=== PATIENT | male | born 1950 | race Caucasian/White ===

== ENCOUNTER 2024-04-07 17:06 | Emergency (ER) | payer MEDICARE, SELFPAY ==
[2024-04-07] VITALS (16 sets, daily range): BP systolic 112–168; BP diastolic 70–102; PULSE 79–127; TEMP 36.9; O2SAT 92–98; BMI 38.2
--- NOTE | 2024-04-07 17:23 | ECG_ITS ---
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
[2024-04-07 17:40] LABS: Basophils Absolute Auto 0.1 10^3/uL (0.0-0.1); Basophils Percent Auto 0.7 % (0.2-2.0); Eosinophils Percent Auto 0.5 % (0.9-7.0); Hematocrit 38.6 % (42.0-54.0); Hemoglobin 13.3 g/dL (14.0-18.0); Immature Granulocytes Abs Auto 0.08 10^3/uL (0.00-0.03); Lymphocytes Absolute Auto 1.1 10^3/uL (1.2-3.8); Lymphocytes Percent Auto 12.8 % (20.5-60.0); Mean Corpuscular HGB Conc 34.5 g/dL (29.9-35.2); Mean Corpuscular Hemoglobin 34.5 pg (25.9-34.0); Mean Corpuscular Volume 100.3 fL (80.0-94.0); Mean Platelet Volume 10.1 fL (9.5-13.5); Monocytes Absolute Auto 1.1 10^3/uL (0.3-0.8); Monocytes Percent Auto 13.4 % (1.7-12.0); Neutrophils Absolute Auto 5.9 10^3/uL (1.4-6.5); Neutrophils Percent Auto 71.6 % (43.0-75.0); Platelet Count 198 10^3/uL (150-450); Red Blood Count 3.85 10^6/uL (4.70-6.10); Red Cell Distribution Width 14.2 % (11.0-15.0); White Blood Count 8.2 10^3/uL (4.0-11.0)
[2024-04-07] MEDS: 0.9 % SODIUM CHLORIDE 1,000 ML 1000 ML IV (17:42)
[2024-04-07 17:52] LABS: Magnesium 1.9 mg/dL (1.8-2.4)
[2024-04-07 18:08] LABS: Alanine Aminotransferase 22 U/L (16-63); Albumin Globulin Ratio 1.2; Albumin Level 3.6 g/dL (3.4-5.0); Alkaline Phosphatase 63 U/L (46-116); Anion Gap 9.3; Aspartate Amino Transferase 13 U/L (15-37); BUN Creatinine Ratio 19.4; Bilirubin Total 1.2 mg/dL (0.2-1.0); Calcium 9.5 mg/dL (8.5-10.1); Carbon Dioxide 27.2 mmol/L (21.0-32.0); Chloride 101 mmol/L (98-107); Estimated GFR (African America >60 (>=60); Estimated GFR (Non-African Ame >60 (>=60); Ethanol <3 mg/dL; Globulin 2.9 g/dL; Glucose 90 mg/dL (74-106); Potassium 3.5 mmol/L (3.5-5.1); Sodium 134 mmol/L (136-145); Total Protein 6.5 g/dL (6.4-8.2)
--- NOTE | 2024-04-07 18:57 | ED.DIZZY1 ---
HPI - Dizziness General Chief Complaint: Syncope Stated Complaint: SYNCOPY @1630/LOW BP Time Seen by Provider: 04/07/24 17:22 Source: patient Mode of arrival: walk-in Limitations: no limitations History of Present Illness HPI Narrative: The patient is coming to the ER after he had an episode during which he was just sitting and all of a sudden passed out for few seconds, according to his friend he was lowered to the floor he was just sitting when this happened, the patient woke up with incontinance of urine. There was no history of any fall or trauma Related Data Allergies Allergy/AdvReac Type Severity Reaction Status Date / Time No Known Drug Allergies Allergy Verified 04/07/24 17:19 Review of Systems ROS Status of ROS 10 or more systems reviewed and unremarkable except as noted in history and below Exam Narrative Exam Narrative: Nurses notes and vital signs reviewed and patient is not hypoxic. General: Well-appearing and in no apparent distress. Skin: Warm, dry, no pallor noted. No rash. Head: Normocephalic, atraumatic. Neck: Supple, non-tender. Eye: Pupils are equal, round and EOMI. No scleral icterus. Ears, Nose, Mouth, and Throat: TM are clear, no nasal mucosal hypertrophy. Oral mucosa is moist, no posterior oropharynx erythema, uvula is mid-line Cardiovascular: Regular Rate and Rhythm without murmur, gallop or rub. Respiratory: No accessory muscle use or respiratory distress. Lungs are clear to auscultation, no wheezing, rales or rhonchi Chest Wall: no tenderness Back: No midline thoracic or lumbar vertebral tenderness. No CVA tenderness Musculoskeletal: normal ROM, no calf or popliteal tenderness, no lower extremity edema/swelling GI: Abdomen is soft, non-distended. Normal bowel sounds. No masses appreciated. No tenderness to palpation. No rebound, guarding, or rigidity noted. Neurological: A&O x4. No cranial nerve dysfunction observed. No truncal ataxia. Moves all extremities. Sensation intact. Psychiatric: Cooperative and interactive. Normal mood and affect. Constitutional Vital Signs, click to edit/add: Last Vital Signs Temp 98.5 F 04/07/24 17:11 Pulse 92 H 04/07/24 18:00 Resp 22 H 04/07/24 18:00 BP 112/75 04/07/24 17:41 Pulse Ox 92 L 04/07/24 17:17 O2 Del Method Room Air 04/07/24 17:11 Course Vital Signs Vital signs: Vital Signs Temperature 98.5 F 04/07/24 17:11 Pulse Rate 79 04/07/24 17:11 Respiratory Rate 18 04/07/24 17:11 Blood Pressure 127/86 04/07/24 17:11 Pulse Oximetry 98 04/07/24 17:11 Oxygen Delivery Method Room Air 04/07/24 17:11 Temperature 98.5 F 04/07/24 17:11 Pulse Rate 92 H 04/07/24 18:00 Respiratory Rate 22 H 04/07/24 18:00 Blood Pressure 112/75 04/07/24 17:41 Pulse Oximetry 92 L 04/07/24 17:17 Oxygen Delivery Method Room Air 04/07/24 17:11 MDM - Dizziness MDM Narrative Medical decision making narrative: The patient EKG upon arrival showing sinus rhythm with a heart rate of [address] elevation or depression The patient blood workup showed no acute pathology but he was orthostatic and he did had history of urine incontinence during the episode CT head and repeated troponin are pending Patient feeling much better after hydration and will be discharged if the troponin is negative and the CAT scan showed no acute pathology the patient care was transferred to Dr. Mitchell Lab Data Labs: Lab Results 04/07/24 Range/Units 17:27 WBC 8.2 (4.0-11.0) 10^3/uL RBC 3.85 L (4.70-6.10) 10^6/uL Hgb 13.3 L (14.0-18.0) g/dL Hct 38.6 L (42.0-54.0) % MCV 100.3 H (80.0-94.0) fL MCH 34.5 H (25.9-34.0) pg MCHC 34.5 (29.9-35.2) g/dL RDW 14.2 (11.0-15.0) % Plt Count 198 (150-450) 10^3/uL MPV 10.1 (9.5-13.5) fL Neut % (Auto) 71.6 (43.0-75.0) % Lymph % (Auto) 12.8 L (20.5-60.0) % [place] % (Auto) 13.4 H (1.7-12.0) % Eos % (Auto) 0.5 L (0.9-7.0) % Baso % (Auto) 0.7 (0.2-2.0) % Neut # (Auto) 5.9 (1.4-6.5) 10^3/uL Lymph # (Auto) 1.1 L (1.2-3.8) 10^3/uL [place] # (Auto) 1.1 H (0.3-0.8) 10^3/uL Eos # (Auto) 0.0 (0.0-0.7) 10^3/uL Baso # (Auto) 0.1 (0.0-0.1) 10^3/uL Abs Immat Gran (auto) 0.08 H (0.00-0.03) 10^3/uL Imm/Tot Granulo (auto) 1.0 H (0.0-0.5) % Sodium 134 L (136-145) mmol/L Potassium 3.5 (3.5-5.1) mmol/L Chloride 101 (98-107) mmol/L Carbon Dioxide 27.2 (21.0-32.0) mmol/L Anion Gap 9.3 BUN 20.0 H (7.0-18.0) mg/dL Creatinine 1.03 (0.70-1.30) mg/dL Est GFR ( Amer) >60 (>=60) Est GFR (Non-Af Amer) >60 (>=60) BUN/Creatinine Ratio 19.4 Glucose 90 (74-106) mg/dL Calcium 9.5 (8.5-10.1) mg/dL Magnesium 1.9 (1.8-2.4) mg/dL Total Bilirubin 1.2 H (0.2-1.0) mg/dL AST 13 L (15-37) U/L ALT 22 (16-63) U/L Alkaline Phosphatase 63 (46-116) U/L Troponin I High Sens 15.0 (4.0-76.1) pg/mL Total Protein 6.5 (6.4-8.2) g/dL Albumin 3.6 (3.4-5.0) g/dL Globulin 2.9 g/dL Albumin/Globulin Ratio 1.2 Ethanol Quant <3 mg/dL Discharge Plan Discharge Patient Disposition: Still a Patient
--- NOTE | 2024-04-07 19:14 | CT_ITS ---
The [address] [address] Patient Name: EDEN AGUILAR MRN: [id number] date: 1950 Sex: M Assigned Patient Location: ER Current Patient Location: ER Accession/Order Number: [id number] Exam Date: 04/07/2024 20:14 Report Date: 04/07/2024 21:33 At the request of: NATHANIEL MARSHALL Procedure: CT head/brain wo con EXAMINATION: CT head/brain wo con, , 04/07/2024 8:14 PM EDT INDICATION: syncope HISTORY: Ordering Provider Reason for Exam: syncope Technologist Note: Additional: COMPARISON: None. TECHNIQUE: CT scan of the head was performed without IV contrast. CT dose reduction technique was used, including Automated Exposure Control. FINDINGS: Ventricles and sulci are normal in size and configuration. No extra-axial collection. No intracranial hemorrhage. No mass effect or edema. No CT evidence of large territorial infarction. Large air-fluid level is seen in the left sphenoid sinus. The remainder of the visualized paranasal sinuses appear unremarkable. Partial fluid opacification of the left mastoid air cells is seen. The right mastoid air cells appear clear. Calvarium is unremarkable. CT/CT head/brain wo con IMPRESSION: No intracranial hemorrhage or mass effect. Large air-fluid level is seen in the left sphenoid sinus, suggestive of acute left sphenoid sinus disease. Left mastoid effusion. Electronically authenticated by: ALAN HIDALGO Date: 04/07/2024 21:33
[2024-04-07 19:37] LABS: Amphetamine Screen Urine NEGATIVE (NEGATIVE); Barbiturates Screen Urine NEGATIVE (NEGATIVE); Benzodiazepines Screen Urine NEGATIVE (NEGATIVE); Buprenorphine Screen Urine NEGATIVE (NEGATIVE); Cannabinoid Screen Urine NEGATIVE (NEGATIVE); Cocaine Screen Urine NEGATIVE (NEGATIVE); Methadone Screen Urine NEGATIVE (NEGATIVE); Methamphetamines Screen Urine NEGATIVE (NEGATIVE); Opiate Screen Urine NEGATIVE (NEGATIVE); Oxycodone Screen Urine NEGATIVE (NEGATIVE); Phencyclidine Screen Urine NEGATIVE (NEGATIVE); Tricyclic Antidepressant Urine NEGATIVE (NEGATIVE)
[2024-04-07 19:46] LABS: Troponin I High Sensitivity 11.5 pg/mL (4.0-76.1)
--- NOTE | 2024-04-07 21:45 | ED.SYNCOPE1 ---
Documented by User: Kennedy Mitchell MD 04/07/24 21:46 HPI - Syncope General Chief Complaint: Syncope Stated Complaint: SYNCOPY @1630/LOW BP Time Seen by Provider: 04/07/24 17:22 Source: patient Mode of arrival: walk-in Limitations: no limitations History of Present Illness HPI narrative: 73-year-old male was initially seen by Dr. Frye and signed out to me after discussing the case with her thoroughly. Please see her full history and physical exam. Related Data Previous Rx's ?Medication ?Instructions ?Recorded amoxicillin 500 mg capsule 500 mg PO TID 10 days #30 caps 04/07/24 Allergies Allergy/AdvReac Type Severity Reaction Status Date / Time No Known Drug Allergies Allergy Verified 04/07/24 17:19 Exam Constitutional Vital Signs, click to edit/add: Last Vital Signs Temp 98.5 F 04/07/24 17:11 Pulse 88 04/07/24 21:30 Resp 15 04/07/24 21:30 BP 157/88 H 04/07/24 21:28 Pulse Ox 97 04/07/24 19:06 O2 Del Method Room Air 04/07/24 17:11 Course Vital Signs Vital signs: Vital Signs Temperature 98.5 F 04/07/24 17:11 Pulse Rate 79 04/07/24 17:11 Respiratory Rate 18 04/07/24 17:11 Blood Pressure 127/86 04/07/24 17:11 Pulse Oximetry 98 04/07/24 17:11 Oxygen Delivery Method Room Air 04/07/24 17:11 Temperature 98.5 F 04/07/24 17:11 Pulse Rate 88 04/07/24 21:30 Respiratory Rate 15 04/07/24 21:30 Blood Pressure 157/88 H 04/07/24 21:28 Pulse Oximetry 97 04/07/24 19:06 Oxygen Delivery Method Room Air 04/07/24 17:11 MDM - Syncope MDM Narrative Medical decision making narrative: 2 sets of troponin is negative. CT brain shows sphenoid sinusitis and he is placed on amoxicillin. He feels better and is able to be discharged home. Treatment diagnosis and follow-up were discussed with the patient and his . Differential Diagnosis Differential diagnosis: Likely syncope due to orthostatic hypotension, vasovagal syncope and dehydration Lab Data Attestation: I reviewed the patient's lab results. Labs: Lab Results 04/07/24 04/07/24 04/07/24 Range/Units 17:27 19:12 19:15 WBC 8.2 (4.0-11.0) 10^3/uL RBC 3.85 L (4.70-6.10) 10^6/uL Hgb 13.3 L (14.0-18.0) g/dL Hct 38.6 L (42.0-54.0) % MCV 100.3 H (80.0-94.0) fL MCH 34.5 H (25.9-34.0) pg MCHC 34.5 (29.9-35.2) g/dL RDW 14.2 (11.0-15.0) % Plt Count 198 (150-450) 10^3/uL MPV 10.1 (9.5-13.5) fL Neut % (Auto) 71.6 (43.0-75.0) % Lymph % (Auto) 12.8 L (20.5-60.0) % [place] % (Auto) 13.4 H (1.7-12.0) % Eos % (Auto) 0.5 L (0.9-7.0) % Baso % (Auto) 0.7 (0.2-2.0) % Neut # (Auto) 5.9 (1.4-6.5) 10^3/uL Lymph # (Auto) 1.1 L (1.2-3.8) 10^3/uL [place] # (Auto) 1.1 H (0.3-0.8) 10^3/uL Eos # (Auto) 0.0 (0.0-0.7) 10^3/uL Baso # (Auto) 0.1 (0.0-0.1) 10^3/uL Abs Immat Gran (auto) 0.08 H (0.00-0.03) 10^3/uL Imm/Tot Granulo (auto) 1.0 H (0.0-0.5) % Sodium 134 L (136-145) mmol/L Potassium 3.5 (3.5-5.1) mmol/L Chloride 101 (98-107) mmol/L Carbon Dioxide 27.2 (21.0-32.0) mmol/L Anion Gap 9.3 BUN 20.0 H (7.0-18.0) mg/dL Creatinine 1.03 (0.70-1.30) mg/dL Est GFR ( Amer) >60 (>=60) Est GFR (Non-Af Amer) >60 (>=60) BUN/Creatinine Ratio 19.4 Glucose 90 (74-106) mg/dL Calcium 9.5 (8.5-10.1) mg/dL Magnesium 1.9 (1.8-2.4) mg/dL Total Bilirubin 1.2 H (0.2-1.0) mg/dL AST 13 L (15-37) U/L ALT 22 (16-63) U/L Alkaline Phosphatase 63 (46-116) U/L Troponin I High Sens 15.0 11.5 (4.0-76.1) pg/mL Total Protein 6.5 (6.4-8.2) g/dL Albumin 3.6 (3.4-5.0) g/dL Globulin 2.9 g/dL Albumin/Globulin Ratio 1.2 Urine Opiates Screen Negative (NEGATIVE) Ur Buprenorphine Scrn Negative (NEGATIVE) Ur Oxycodone Screen Negative (NEGATIVE) Urine Methadone Screen Negative (NEGATIVE) Ur Barbiturates Screen Negative (NEGATIVE) U Tricyclic Antidepress Negative (NEGATIVE) Ur Phencyclidine Scrn Negative (NEGATIVE) Ur Amphetamines Screen Negative (NEGATIVE) U Methamphetamines Scrn Negative (NEGATIVE) U Benzodiazepines Scrn Negative (NEGATIVE) Urine Cocaine Screen Negative (NEGATIVE) U Cannabinoids Screen Negative (NEGATIVE) Ethanol Quant <3 mg/dL Discharge Plan Discharge Stand Alone Forms: Portal Instructions Chief Complaint: Syncope Clinical Impression: Dehydration, Syncope, Sphenoid sinusitis Patient Disposition: Home, Self-Care Time of Disposition Decision: 19:14 Condition: Good Mode of Transportation: Private Vehicle Prescriptions / Home Meds: New amoxicillin 500 mg capsule 500 mg PO TID 10 Days Qty: 30 0RF Print Language: Iranian Instructions: Dehydration (ED), Sinusitis (ED), Syncope (ED) Referrals: TALYA RAMIREZ [Primary Care Provider] - 1 week Discharge Date/Time: 04/07/24 22:14 Documented by User: Kelly Frye MD 04/08/24 07:21 HPI - Syncope General Chief Complaint: Syncope Stated Complaint: SYNCOPY @1630/LOW BP Time Seen by Provider: 04/07/24 17:22 Related Data Previous Rx's ?Medication ?Instructions ?Recorded amoxicillin 500 mg capsule 500 mg PO TID 10 days #30 caps 04/07/24 Allergies Allergy/AdvReac Type Severity Reaction Status Date / Time No Known Drug Allergies Allergy Verified 04/07/24 17:19 Review of Systems ROS Status of ROS 10 or more systems reviewed and unremarkable except as noted in history and below Exam Narrative Exam Narrative: Nurses notes and vital signs reviewed and patient is not hypoxic. General: Well-appearing and in no apparent distress. Skin: Warm, dry, no pallor noted. No rash. Head: Normocephalic, atraumatic. Neck: Supple, non-tender. Eye: Pupils are equal, round and EOMI. No scleral icterus. Ears, Nose, Mouth, and Throat: TM are clear, no nasal mucosal hypertrophy. Oral mucosa is moist, no posterior oropharynx erythema, uvula is mid-line Cardiovascular: Regular Rate and Rhythm without murmur, gallop or rub. Respiratory: No accessory muscle use or respiratory distress. Lungs are clear to auscultation, no wheezing, rales or rhonchi Chest Wall: no tenderness Back: No midline thoracic or lumbar vertebral tenderness. No CVA tenderness Musculoskeletal: normal ROM, no calf or popliteal tenderness, no lower extremity edema/swelling GI: Abdomen is soft, non-distended. Normal bowel sounds. No masses appreciated. No tenderness to palpation. No rebound, guarding, or rigidity noted. Neurological: A&O x4. No cranial nerve dysfunction observed. No truncal ataxia. Moves all extremities. Sensation intact. Psychiatric: Cooperative and interactive. Normal mood and affect. Constitutional Vital Signs, click to edit/add: Last Vital Signs Temp 98.5 F 04/07/24 17:11 Pulse 88 04/07/24 21:30 Resp 15 04/07/24 21:30 BP 157/88 H 04/07/24 21:28 Pulse Ox 97 04/07/24 19:06 O2 Del Method Room Air 04/07/24 17:11 Course Vital Signs Vital signs: Vital Signs Temperature 98.5 F 04/07/24 17:11 Pulse Rate 79 04/07/24 17:11 Respiratory Rate 18 04/07/24 17:11 Blood Pressure 127/86 04/07/24 17:11 Pulse Oximetry 98 04/07/24 17:11 Oxygen Delivery Method Room Air 04/07/24 17:11 Temperature 98.5 F 04/07/24 17:11 Pulse Rate 88 04/07/24 21:30 Respiratory Rate 15 04/07/24 21:30 Blood Pressure 157/88 H 04/07/24 21:28 Pulse Oximetry 97 04/07/24 19:06 Oxygen Delivery Method Room Air 04/07/24 17:11 MDM - Syncope Lab Data Labs: Lab Results 04/07/24 04/07/24 04/07/24 Range/Units 17:27 19:12 19:15 WBC 8.2 (4.0-11.0) 10^3/uL RBC 3.85 L (4.70-6.10) 10^6/uL Hgb 13.3 L (14.0-18.0) g/dL Hct 38.6 L (42.0-54.0) % MCV 100.3 H (80.0-94.0) fL MCH 34.5 H (25.9-34.0) pg MCHC 34.5 (29.9-35.2) g/dL RDW 14.2 (11.0-15.0) % Plt Count 198 (150-450) 10^3/uL MPV 10.1 (9.5-13.5) fL Neut % (Auto) 71.6 (43.0-75.0) % Lymph % (Auto) 12.8 L (20.5-60.0) % [place] % (Auto) 13.4 H (1.7-12.0) % Eos % (Auto) 0.5 L (0.9-7.0) % Baso % (Auto) 0.7 (0.2-2.0) % Neut # (Auto) 5.9 (1.4-6.5) 10^3/uL Lymph # (Auto) 1.1 L (1.2-3.8) 10^3/uL [place] # (Auto) 1.1 H (0.3-0.8) 10^3/uL Eos # (Auto) 0.0 (0.0-0.7) 10^3/uL Baso # (Auto) 0.1 (0.0-0.1) 10^3/uL Abs Immat Gran (auto) 0.08 H (0.00-0.03) 10^3/uL Imm/Tot Granulo (auto) 1.0 H (0.0-0.5) % Sodium 134 L (136-145) mmol/L Potassium 3.5 (3.5-5.1) mmol/L Chloride 101 (98-107) mmol/L Carbon Dioxide 27.2 (21.0-32.0) mmol/L Anion Gap 9.3 BUN 20.0 H (7.0-18.0) mg/dL Creatinine 1.03 (0.70-1.30) mg/dL Est GFR ( Amer) >60 (>=60) Est GFR (Non-Af Amer) >60 (>=60) BUN/Creatinine Ratio 19.4 Glucose 90 (74-106) mg/dL Calcium 9.5 (8.5-10.1) mg/dL Magnesium 1.9 (1.8-2.4) mg/dL Total Bilirubin 1.2 H (0.2-1.0) mg/dL AST 13 L (15-37) U/L ALT 22 (16-63) U/L Alkaline Phosphatase 63 (46-116) U/L Troponin I High Sens 15.0 11.5 (4.0-76.1) pg/mL Total Protein 6.5 (6.4-8.2) g/dL Albumin 3.6 (3.4-5.0) g/dL Globulin 2.9 g/dL Albumin/Globulin Ratio 1.2 Urine Opiates Screen Negative (NEGATIVE) Ur Buprenorphine Scrn Negative (NEGATIVE) Ur Oxycodone Screen Negative (NEGATIVE) Urine Methadone Screen Negative (NEGATIVE) Ur Barbiturates Screen Negative (NEGATIVE) U Tricyclic Antidepress Negative (NEGATIVE) Ur Phencyclidine Scrn Negative (NEGATIVE) Ur Amphetamines Screen Negative (NEGATIVE) U Methamphetamines Scrn Negative (NEGATIVE) U Benzodiazepines Scrn Negative (NEGATIVE) Urine Cocaine Screen Negative (NEGATIVE) U Cannabinoids Screen Negative (NEGATIVE) Ethanol Quant <3 mg/dL Discharge Plan Discharge Stand Alone Forms: Portal Instructions Chief Complaint: Syncope Clinical Impression: Dehydration, Syncope, Sphenoid sinusitis Patient Disposition: Home, Self-Care Time of Disposition Decision: 19:14 Condition: Good Mode of Transportation: Private Vehicle Prescriptions / Home Meds: New amoxicillin 500 mg capsule 500 mg PO TID 10 Days Qty: 30 0RF Print Language: Iranian Instructions: Dehydration (ED), Sinusitis (ED), Syncope (ED) Referrals: TALYA RAMIREZ [Primary Care Provider] - 1 week Discharge Date/Time: 04/07/24 22:14
[2024-04-07] MEDS: AMOXICILLIN 500 MG CAPSULE PO (22:09)
== END 2024-04-07 22:14 | disposition home or self-care (01) ==
PROVIDERS: Emergency Provider Emergency Medicine; PCP Family Medicine
DX: R55 Syncope and collapse (principal); E86.0 Dehydration; J32.3 Chronic sphenoidal sinusitis
CPT/HCPCS: 36415; 70450; 80053; 80307; 80320; 83735; 84484; 85025; 93005; 96360; 99285

== ENCOUNTER 2024-12-07 08:25 | Outpatient (RCR) | payer MEDICARE, SELFPAY | END 2025-02-09 07:37 | disposition home or self-care (01) | LOC: PT 08:25 | PROVIDERS: PCP Family Medicine | DX: M48.062 Spinal stenosis, lumbar region with neurogenic claudication (principal); Z98.890 Other specified postprocedural states | CPT/HCPCS: 97012; 97110; 97112; 97140; 97163 ==